=== PATIENT | male | born 1980 | race Caucasian/White ===

== ENCOUNTER → 2020-01-22 16:56 | Outpatient (CLI) | payer BC, SELFPAY ==
--- NOTE | ~2020-01-22 | XR_ITS ---
EXAMINATION: XR chest 2V 01/22/2020 17:08 INDICATION: Cough and shortness of breath PROCEDURE: 2 view chest COMPARISON: 05/27/2019 FINDINGS: The lungs are clear. The cardiomediastinal silhouette is within normal limits. There are no pleural effusions. There is no pneumothorax suspected. IMPRESSION: 1: NO ACUTE CARDIOPULMONARY DISEASE. Reviewed, dictated and finalized at location A.
== END ==
PROVIDERS: Visit Provider Internal Medicine Infectious Disease
DX: R05 Cough (principal)
CPT/HCPCS: 71046

== ENCOUNTER 2022-06-26 09:15 | Inpatient (IN) | payer BC, SELFPAY ==
[2022-06-26] VITALS (28 sets, daily range): BP systolic 162–183; BP diastolic 105–126; PULSE 60–126; RESP 15–26; TEMP 36.1–37; O2SAT 94–100
--- NOTE | ~2022-06-26 | CT_ITS ---
EXAMINATION: CT abdomen pelvis w con INDICATION: Periumbilical pain TECHNIQUE: Computed tomographic images of the abdomen and pelvis were obtained after the administrati on of 100 cc of Omnipaque 350 intravenous contrast. The dose-length product (DLP) was 768.24 mGy-cm. Automated exposure control and iterative reconstruction technique were employed. COMPARISON: 05/27/2019 FINDINGS: Minimal dependent atelectasis is present in the lung bases. The heart size is normal. There is been interval development of areas of fat attenuation in the liver adjacent to gallbladder fossa and ligamentum teres. The liver is also diffusely low in attenuation when compared with the spleen, c onsistent with hepatic steatosis. The spleen, gallbladder, and adrenal glands are normal. There is en largement of the pancreatic duct in the head of the pancreas which measures up to 6 mm. There is mild ly decreased enhancement in the head of the pancreas relative to the tail. There is acute peripancrea tic fluid surrounding the pancreas and tracking into the anterior pararenal spaces and into the pelvi s. No pathologically enlarged abdominal or pelvic lymph nodes are identified. There is no free intrap eritoneal gas or evidence of bowel obstruction. The kidneys are unremarkable. IMPRESSION: 1. Acute pancreatitis with acute peripancreatic fluid collection, likely interstitial edematous. 2. Diffuse hepatic steatosis with new areas of focal fatty infiltration near the gallbladder fossa an d ligamentum teres. Reviewed, dictated and finalized at location A. IMPRESSION: 1. Acute pancreatitis with acute peripancreatic fluid collection, likely inters titial edematous. 2. Diffuse hepatic steatosis with new areas of focal fatty infiltration near th e gallbladder fossa and ligamentum teres.
--- NOTE | 2022-06-26 09:25 | ED.ABDPAIN ---
HPI - Abdominal Pain General Chief Complaint: Abdominal Pain Stated Complaint: pancreatitis Time Seen by Provider: 06/26/22 09:19 History of Present Illness HPI narrative: 42-year-old male with a history of alcoholism presents emergency room for evaluation of upper abdominal pain. Patient states pain began last night, describes it as a sharp and stabbing pain. Is associated with occasional nausea. Patient states that he drinks approximately 1 fifth of vodka daily. States yesterday he did not drink any alcohol. Also complaining of tremors to his hands. Endorses a history of pancreatitis. Related Data Home Medications Medication Instructions Recorded Confirmed bupropion HCl 300 mg 24 hr tablet, mg PO 06/26/22 extended release buspirone 10 mg tablet mg 06/26/22 cephalexin 500 mg capsule mg 06/26/22 losartan 25 mg tablet mg 06/26/22 pantoprazole 40 mg tablet,delayed mg PO 06/26/22 release trazodone 100 mg tablet mg 06/26/22 Allergies Allergy/AdvReac Type Severity Reaction Status Date / Time No Known Allergies Allergy Unknown Verified 05/27/19 12:25 paprika Allergy Unknown Unknown Verified 06/26/22 09:33 Review of Systems Review of Systems: CONSTITUTIONAL: Denies fever, chills, or sweats. EYES: Denies visual changes, redness, or discharge. ENT: Denies rhinorrhea, congestion, sore throat, or otalgia. CARDIOVASCULAR: Denies chest pain, palpitations, or edema. RESPIRATORY: Denies cough or dyspnea. GASTROINTESTINAL: Reports abdominal pain, nausea GENITOURINARY: Denies dysuria or hematuria. SKIN: Denies rash or itching. MUSCULOSKELETAL: Denies back pain, joint pain, or myalgia. NEUROLOGIC: Reports tremors PSYCHIATRIC: Denies anxiety or depression. [facility] Past Medical History Medical History (Updated 06/26/22 @ 13:11 by Donato Rivers APRN) Acute on chronic pancreatitis Anxiety Depression Hypertension Family History Family History Father Cerebrovascular accident Social History Social History (Updated 06/26/22 @ 12:44 by Sarah Kumar NP) Social History: vapes single mom no children alc occ mj Smoking status: Heavy tobacco smoker Alcohol intake: current Exam Narrative: GENERAL: ill-appearing, well-nourished, no physical limitations, and in acute distress. HEAD: Normocephalic, atraumatic. EYES: Conjunctivae normal, PERRLA and EOMI. CHEST: Clear to auscultation. No respiratory distress. No wheezes rales or rhonchi. No tenderness. HEART: Regular rate and rhythm. No murmur heard. Normal peripheral pulses. ABDOMEN: Soft, periumbilical tenderness, nondistended, normal active bowel sounds. BACK: No CVA tenderness EXTREMITIES: Normal range of motion. No edema. No clubbing or cyanosis SKIN: Warm, dry, no rash. No noted wounds NEURO: No focal deficits. Alert and oriented x3. MAEW. CN's II-XI intact bilaterally, normal gait PSYCH: Cooperative. Normal mood and affect. Course Vital Signs Vital signs: Vital Signs Temperature 36.4 C 06/26/22 09:19 Pulse Rate 118 H 06/26/22 09:19 Respiratory Rate 21 H 06/26/22 09:19 Blood Pressure 171/119 H 06/26/22 09:19 Pulse Oximetry 98 06/26/22 09:19 Oxygen Delivery Room Air 06/26/22 09:19 Temperature 37.0 C 06/26/22 12:39 Pulse Rate 111 H 06/26/22 13:03 Respiratory Rate 21 H 06/26/22 13:03 Blood Pressure 176/116 H 06/26/22 12:36 Pulse Oximetry 99 06/26/22 13:03 Oxygen Delivery Room Air 06/26/22 09:19 MDM - Abdominal Pain Lab Data Result diagrams: 06/26/22 09:32 06/26/22 09:32 Labs: Lab Results 06/26/22 06/26/22 06/26/22 Range/Units 09:31 09:32 09:32 WBC 13.9 H (4.5-10.0) K/mm3 RBC 5.37 (4.6-6.20) M/mm3 Hgb 15.6 (14.0-18.0) g/dL Hct 47.3 (42.0-52.0) % MCV 88.1 (80-100) fl MCH 29.1 (26-34) pg MCHC 33.0 (32-36) g/dl RDW 13.2 (11.5-14.5) % Plt Count 296 (150-375) k/m
[2022-06-26] MEDS: SODIUM CHLORIDE 0.9% IV 1,000 ML 999 ML IV CONT (09:40)
[2022-06-26] MEDS: ONDANSETRON INJ 4 MG/2 ML VIAL IV PUSH ×3 (09:45→20:13)
[2022-06-26] MEDS: HYDROmorphone HCL INJ (*CRX) 1 MG/ML SYR 0.5 MG IV PUSH ×5 (09:45→20:12)
[2022-06-26] MEDS: chlordiazePOXIDE (*CRX) 10 MG CAPSULE PO (09:46)
[2022-06-26 09:48] LABS: Basophils Percent Auto 0.2 % (0.2-1.2); Eosinophils Percent Auto 0.1 % (0-4.4); Hematocrit 47.3 % (42.0-52.0); Hemoglobin 15.6 g/dL (14.0-18.0); Immature Granulocyte Absolute 0.08 K/mm3 (0.00-0.031); Immature Granulocyte Percent A 0.6 % (0-0.5); Lymphocytes Absolute Auto 0.58 K/mm3 (0.9-3.2); Lymphocytes Percent Auto 4.2 % (18.3-44.2); Mean Corpuscular Hemoglobin 29.1 pg (26-34); Mean Corpuscular Volume 88.1 fl (80-100); Mean Platelet Volume 9.7 fl (7.4-10.4); Monocytes Absolute Auto 0.9 K/mm3 (0.1-0.6); Monocytes Percent Auto 6.8 % (2.6-8.5); Neutrophils Absolute Auto 12.2 K/mm3 (1.3-6.7); Neutrophils Percent Auto 88.1 % (45.5-73.1); Platelet Count Result 296 k/mm3 (150-375); Red Blood Count 5.37 M/mm3 (4.6-6.20); Red Cell Distribution Width 13.2 % (11.5-14.5); White Blood Count 13.9 K/mm3 (4.5-10.0)
[2022-06-26 09:58] LABS: Lactic Acid Reflex 1.8 mmol/L (0.7-2.0)
[2022-06-26 09:58] LABS: Ethanol < 10 mg/dL (<10)
[2022-06-26 10:01] LABS: Alanine Aminotransferase 39 U/L (6-50); Albumin Level 4.8 g/dL (3.5-5.1); Alkaline Phosphatase 87 U/L (38-126); Anion Gap 10 mmol/L (8-16); Aspartate Amino Transferase 51 U/L (17-59); Bilirubin,Total 2.2 mg/dL (0.2-1.3); Blood Urea Nitrogen 11 mg/dL (9-20); Calcium 9.4 mg/dL (8.4-10.2); Carbon Dioxide 26 mmol/L (22-30); Chloride 97 mmol/L (98-107); Estimated CRCL calculation 129 ml/min; Estimated Glomerular Filt Rate > 60; Glucose 208 mg/dL (65-110); Potassium 4.3 mmol/L (3.4-5.0); Sodium 133 mmol/L (137-145)
[2022-06-26 10:04] LABS: Add Urine Microscopic? YES; Appearance Urine Slightly Cloudy (Clear); Bilirubin Urine 2+ (Negative); Blood Urine Trace-lysed (Negative); Color Urine Dark Yellow (Yellow); Glucose Urine UA 1+ mg/dL (Negative); Ketones Urine 2+ mg/dL (Negative); Leukocyte Esterase Ur Negative LEU/UL (Negative); Nitrate Urine Positive (Negative); Protein Urine 3+ mg/dL (Negative); Specific Grav Ur 1.025 (1.001-1.035); pH Urine 6.5 (5.0-9.0)
[2022-06-26 10:11] LABS: Mucus Urine Heavy /lpf; Squamous Epithelial Cell Urine Rare /hpf (Few); WBC Urine 0-3 /hpf
[2022-06-26 10:30] LABS: Lipase 4851 U/L (23-300)
[2022-06-26 10:47] LABS: Hemoglobin A1C 5.5 % (<5.7)
[2022-06-26] MEDS: SODIUM CHLORIDE 0.9% IV 1,000 ML 999 ML (12:04)
--- NOTE | 2022-06-26 12:39 | PM.IMHP ---
H&P: HPI History of Present Illness Date/Time: 06/26/22 12:39 Chief Complaint: Abdominal pain Narrative: This is a 42-year-old male patient who has a history of alcoholism. The patient stated that he has been sober since 2019. The patient stated that he was a recovering alcoholic and until some problems developed in his life recently. The patient recently received a promotion and his mother is paralyzed after having back surgery and he is the only child. The patient stated that he is not drink alcohol in 2 days. The patient states that he has been drinking 2/3 of a 5th of vodka daily. The patient stated that Saturday he developed severe abdominal pain and he could not even tolerate liquid at the time. The patient has had pancreatitis in the past and stated this felt the same as when he had pancreatitis a few years ago. Patient's white count is noted to be 13.9. Sodium 133. Glucose is 208. Lipase is 4851. He was also positive for UTI. He was given IV fluids, Dilaudid, Librium, Zofran and Rocephin in the emergency room. Patient is being admitted inpatient on the date of service 06/26/2022. Review of Systems Review of Systems: See HPI All systems reviewed & are unremarkable except as noted in HPI and below Constitutional: Constitutional: Reports as per HPI and Reports no additional constitutional complaints Eyes: Eyes: Reports as per HPI and Reports no additional eye complaints ENT: Reports system reviewed and no additional complaints, except as documented and Reports Normal hearing present Cardiovascular: Cardiovascular: Reports no additional cardiovascular complaints Respiratory: Respiratory: Reports no additional respiratory complaints and Reports no additional respiratory complaints Gastrointestinal: Gastrointestinal: Reports as per HPI and Reports no additional gastrointestinal complaints Musculoskeletal: Musculoskeletal: Reports no additional musculoskeletal complaints Integumentary/Breasts: Skin/Breast: Reports system reviewed and no additional complaints, except as docu and Reports as per HPI Neurologic: Reports system reviewed and no additional complaints, except as documented, Reports as per HPI and Reports Normal hearing present Psychiatric: Psychiatric: Reports no additional psychiatric complaints and Reports as per HPI Endocrine: Endocrine: Reports no additional endocrine complaints Hematologic/Lymphatic: Hematologic/Lymphatic: Reports no additional hematologic/lymphatic complaints Allergic/Immunologic: Allergic/Immunologic: Reports no additional allergic/immunologic complaints [facility] Past Medical History Medical History (Updated 06/26/22 @ 13:33 by Sarah Kumar NP) Acute on chronic pancreatitis Alcoholism Anxiety Chronic GERD Depression History of kidney stones Hypertension Surgical History Surgical History (Updated 06/26/22 @ 13:18 by Sarah Kumar NP) [place] teeth removed Family History Family History Father Cerebrovascular accident Social History Social History (Updated 06/26/22 @ 13:21 by Sarah Kumar NP) Social History: The patient stated that he stop smoking and he now occasionally vapes. The patient is single and he is the only child and his family. He has no children. The patient is a recovering alcoholic and had not drink since 2018 and just recently started drinking 2/3 of a 5th of vodka daily. His mom would be the durable power gps field data collector for healthcare. He lives with a dog. He occasionally uses marijuana. Code status full code Smoking status: Heavy tobacco smoker Alcohol intake: current Meds Home Medications and Allergies Home Medications Medication Instructions Recorded Confirmed Type bupropion HCl 300 mg 24 hr tablet, mg PO 06/26/22 History extended release buspirone 10 mg tablet mg 06/26/22 History cephalexin 500 mg capsule mg 06/26/22 History losartan 25 mg tablet mg 06/26
[2022-06-26] MEDS: SODIUM CHLORIDE 0.9% IV 1,000 ML 125 ML IV CONT ×2 (13:58→21:36)
[2022-06-26] MEDS: chlordiazePOXIDE (*CRX) 25 MG CAPSULE PO (18:32)
[2022-06-26] MEDS: traZODone HCL 50 MG TABLET 100 MG PO (20:20)
[2022-06-26] MEDS: FAMOTIDINE 20 MG/2 ML VIAL IV PUSH (21:35)
[2022-06-27] VITALS (8 sets, daily range): BP systolic 145–161; BP diastolic 98–104; PULSE 62–103; RESP 16–20; TEMP 36.4–36.8; O2SAT 95–98
[2022-06-27] MEDS: HYDROmorphone HCL INJ (*CRX) 1 MG/ML SYR 0.5 MG IV PUSH ×5 (00:08→21:17)
[2022-06-27] MEDS: ONDANSETRON INJ 4 MG/2 ML VIAL IV PUSH ×2 (00:08→05:52)
[2022-06-27] MEDS: chlordiazePOXIDE (*CRX) 25 MG CAPSULE PO ×2 (00:09→05:52)
[2022-06-27] MEDS: SODIUM CHLORIDE 0.9% IV 1,000 ML 125 ML IV CONT (05:51)
[2022-06-27 07:57] LABS: Basophils Percent Auto 0.3 % (0.2-1.2); Eosinophils Percent Auto 0.1 % (0-4.4); Hematocrit 44.5 % (42.0-52.0); Hemoglobin 14.5 g/dL (14.0-18.0); Immature Granulocyte Absolute 0.04 K/mm3 (0.00-0.031); Immature Granulocyte Percent A 0.3 % (0-0.5); Lymphocytes Absolute Auto 1.15 K/mm3 (0.9-3.2); Lymphocytes Percent Auto 9.8 % (18.3-44.2); Mean Corpuscular HGB Conc 32.6 g/dl (32-36); Mean Corpuscular Hemoglobin 29.2 pg (26-34); Mean Corpuscular Volume 89.5 fl (80-100); Monocytes Absolute Auto 1.1 K/mm3 (0.1-0.6); Monocytes Percent Auto 9.6 % (2.6-8.5); Neutrophils Absolute Auto 9.4 K/mm3 (1.3-6.7); Neutrophils Percent Auto 79.9 % (45.5-73.1); Platelet Count Result 228 k/mm3 (150-375); Red Blood Count 4.97 M/mm3 (4.6-6.20); White Blood Count 11.7 K/mm3 (4.5-10.0)
[2022-06-27 08:06] LABS: Lactic Acid Reflex 0.7 mmol/L (0.7-2.0)
[2022-06-27 08:16] LABS: Alanine Aminotransferase 25 U/L (6-50); Albumin Level 3.6 g/dL (3.5-5.1); Alkaline Phosphatase 64 U/L (38-126); Anion Gap 6 mmol/L (8-16); Aspartate Amino Transferase 25 U/L (17-59); Bilirubin,Total 1.1 mg/dL (0.2-1.3); Blood Urea Nitrogen 6 mg/dL (9-20); Calcium 8.6 mg/dL (8.4-10.2); Carbon Dioxide 30 mmol/L (22-30); Chloride 96 mmol/L (98-107); Estimated CRCL calculation 129 ml/min; Estimated Glomerular Filt Rate > 60; Glucose 117 mg/dL (65-110); Lactate Dehydrogenase 144 U/L (120-246); Lipase 1560 U/L (23-300); Phosphorus 3.2 mg/dL (2.5-4.5); Potassium 3.7 mmol/L (3.4-5.0); Sodium 132 mmol/L (137-145)
--- NOTE | 2022-06-27 08:54 | PM.IMPN ---
Progress Note: A&P Assessment and Plan (1) Acute on chronic pancreatitis: Code(s): K85.90 - Acute pancreatitis without necrosis or infection, unspecified; K86.1 - Other chronic pancreatitis Status: Acute Assessment and Plan: Epigastric pain radiating to back. Lipase [address] abd/pelvis shows acute peripancreatic fluid consistent with acute pancreatitis and diffuse hepatic steatosis with focal fatty infiltration. Continue aggressive IV resuscitation. Trend lipase, down to 1560. Continue clear liquid diet until pain more improved. Continue PRN analgesics and antiemetics. We discussed alcohol abstenance. (2) UTI (urinary tract infection): Code(s): N39.0 - Urinary tract infection, site not specified Status: Acute Assessment and Plan: C/o abdominal pain. UA +nitrates. WBC 13.9. Started on Rocephin 1 gram Q24 hours. Urine culture pending and will adjust antibiotics based on results. (3) Alcoholism: Code(s): F10.20 - Alcohol dependence, uncomplicated Status: Acute Assessment and Plan: Patient reported he started drinking again d/t significant life and work stress. He reports taking 2/3 of a 5th of Vodka. Continue CIWA protocol Scheduled librium 50 mg Q6 hours Daily thiamine and folic acid supplements. PRN Valium IV for elevated CIWA score. Care coordination consulted for substance abuse resources. Patient counseled to quit. (4) Hypertension: Code(s): I10 - Essential (primary) hypertension Status: Chronic Assessment and Plan: BP elevated on admission 183/106 to 176/116. Likely increased from acute pain with/without alcohol withdrawal. Continue losartan at home dose. Plan CODE STATUS: FULL CODE Disposition: home Time Spent With Patient Time with patient: 15 - 25 minutes Subjective Date/time seen: 06/27/22 08:54 Interval history: Patient is a 42-year-old male with a history of alcohol abuse, hypertension, GERD and anxiety.? He presented to the ED for evaluation of abdominal pain following drinking relapse. CT abd/pelvis was consistent with acute pancreatitis. He reports his pain is improving, but still present, and radiates to his back. He denies worsening pain after eating. Pain improves with IV narcotics. He has some nausea, but no emesis. He has some anxiety and mild tremors. Nursing reports CIWA score 4-5. Patient reports he is currently in counseling for anxiety and substance abuse, however, his appointment has been canceled 3 times, recently, and he has had increased work and life stress. He has tried Vivitrol in the past and did not think it worked well for him. Review of Systems Review of Systems: All systems reviewed & are unremarkable except as noted in HPI and below Exam Narrative: General: No acute distress.? Mental Status/Psych: AAOx4. Mildly anxious mood and affect. Cooperative with examination. Clear and appropriate speech. Skin: Skin fair, warm, and dry without rashes or lesions. No diaphoresis or cyanosis. HEENT: Normocephalic. EOM intact. Sclera non-icteric. Pupils equal and round. Oral mucosa moist. Neck: Supple without lymphadenopathy. Thyroid without nodules. No JVD. Heart: Normal S1 and S2 regular rate and rhythm. No murmurs, gallops, or rubs auscultated. Chest: RR unlabored at rest. Lung sounds are clear to auscultation in all lobes bilaterally without wheezes, rhonchi, or rales. Abdomen: Soft, round and tender to palpation epigastric region.? Bowel sounds present in all 4 quadrants. No guarding. CVA or suprapubic tenderness. Extremities:?? Grossly normal ROM all extremities equally. No edema. Radial pulses and dorsalis pedis pulses palpable and equal bilaterally. Neurological: No focal deficits. Muscle strength 5/5 all extremities. Cranial nerves 2-12 grossly intact. Objective Data Vital Signs Vital Signs: Vital Signs - 24 hr 06/26/22 09:19 06/26/22 09:30 06/26/22 09:
[2022-06-27] MEDS: THIAMINE HCL 200 MG/2 ML VIAL 100 MG IV PUSH (09:37)
[2022-06-27] MEDS: FAMOTIDINE 20 MG/2 ML VIAL IV PUSH ×2 (09:37→21:16)
[2022-06-27] MEDS: PANTOPRAZOLE 40 MG TABLET PO (09:41)
[2022-06-27] MEDS: LOSARTAN POTASSIUM 25 MG TABLET PO (09:42)
[2022-06-27] MEDS: buPROPion HCL XL (24 HR) 150 MG TABCR 300 MG PO (09:42)
[2022-06-27] MEDS: SODIUM CHLORIDE 0.9% IV 1,000 ML 200 ML IV CONT ×3 (12:30→23:24)
[2022-06-27] MEDS: chlordiazePOXIDE (*CRX) 25 MG CAPSULE 50 MG PO ×2 (12:42→18:10)
[2022-06-27] MEDS: traZODone HCL 50 MG TABLET 200 MG PO (21:18)
[2022-06-28] MEDS: chlordiazePOXIDE (*CRX) 25 MG CAPSULE 50 MG PO ×5 (00:11→23:52)
[2022-06-28] MEDS: traZODone HCL 50 MG TABLET 200 MG PO ×2 (00:12→23:54)
[2022-06-28 03:41] VITALS: PULSE 96
[2022-06-28] MEDS: SODIUM CHLORIDE 0.9% IV 1,000 ML 200 ML IV CONT (04:25)
[2022-06-28] MEDS: HYDROmorphone HCL INJ (*CRX) 1 MG/ML SYR 0.5 MG IV PUSH ×2 (04:29→08:37)
[2022-06-28 06:00] VITALS: BP 136/101; PULSE 98; RESP 18; TEMP 36.6; O2SAT 98
[2022-06-28 07:15] LABS: Basophils Percent Auto 0.3 % (0.2-1.2); Eosinophils Percent Auto 0.3 % (0-4.4); Hematocrit 41.8 % (42.0-52.0); Hemoglobin 13.6 g/dL (14.0-18.0); Immature Granulocyte Absolute 0.08 K/mm3 (0.00-0.031); Immature Granulocyte Percent A 0.7 % (0-0.5); Lymphocytes Absolute Auto 1.47 K/mm3 (0.9-3.2); Lymphocytes Percent Auto 12.7 % (18.3-44.2); Mean Corpuscular HGB Conc 32.5 g/dl (32-36); Mean Corpuscular Hemoglobin 29.1 pg (26-34); Mean Corpuscular Volume 89.5 fl (80-100); Mean Platelet Volume 9.8 fl (7.4-10.4); Monocytes Absolute Auto 1.2 K/mm3 (0.1-0.6); Monocytes Percent Auto 10.1 % (2.6-8.5); Neutrophils Absolute Auto 8.8 K/mm3 (1.3-6.7); Neutrophils Percent Auto 75.9 % (45.5-73.1); Platelet Count Result 197 k/mm3 (150-375); Red Blood Count 4.67 M/mm3 (4.6-6.20); Red Cell Distribution Width 12.7 % (11.5-14.5); White Blood Count 11.5 K/mm3 (4.5-10.0)
[2022-06-28 07:26] LABS: Alanine Aminotransferase 19 U/L (6-50); Albumin Level 3.3 g/dL (3.5-5.1); Alkaline Phosphatase 67 U/L (38-126); Anion Gap 7 mmol/L (8-16); Aspartate Amino Transferase 22 U/L (17-59); Blood Urea Nitrogen 5 mg/dL (9-20); Calcium 8.3 mg/dL (8.4-10.2); Carbon Dioxide 28 mmol/L (22-30); Chloride 96 mmol/L (98-107); Estimated CRCL calculation 129 ml/min; Estimated Glomerular Filt Rate > 60; Glucose 99 mg/dL (65-110); Lipase 520 U/L (23-300); Potassium 3.3 mmol/L (3.4-5.0); Sodium 131 mmol/L (137-145)
[2022-06-28] MEDS: POTASSIUM CHLORIDE 20 MEQ PACKET (FOR LIQUID) 40 MEQ PO (08:25)
[2022-06-28] MEDS: buPROPion HCL XL (24 HR) 150 MG TABCR 300 MG PO (08:25)
[2022-06-28] MEDS: POTASSIUM CHLORIDE INJ 40 MEQ in SODIUM CHLORIDE 0.9% IV 500 ML 130 MEQ IVPB (08:25)
[2022-06-28] MEDS: FAMOTIDINE 20 MG/2 ML VIAL IV PUSH ×2 (08:25→20:59)
[2022-06-28] MEDS: LOSARTAN POTASSIUM 25 MG TABLET PO ×2 (08:26→18:13)
[2022-06-28] MEDS: FOLIC ACID 1 MG TABLET PO (08:26)
[2022-06-28] MEDS: THIAMINE HCL 100 MG TABLET PO (08:26)
[2022-06-28] MEDS: PANTOPRAZOLE 40 MG TABLET PO (08:26)
--- NOTE | 2022-06-28 13:20 | PCDIET ---
Nutrition consult for alcoholism. Pt advanced to a low fat diet for lunch. Reports good appetite, stated ate 75% of meal. No reported weight loss. On thiamin. No nutrition recommendations at this time.
[2022-06-28 14:00] VITALS: BP 158/118; PULSE 95; RESP 12; TEMP 36.9; O2SAT 98
[2022-06-28] MEDS: SODIUM CHLORIDE 0.9% IV 1,000 ML 75 ML IV CONT (14:26)
[2022-06-28] MEDS: HYDROcodone/acetaminophen (*CRX) 5-325 MG TABLET 1 TAB PO ×2 (14:31→20:58)
--- NOTE | 2022-06-28 16:21 | PM.IMPN ---
Progress Note: A&P Assessment and Plan (1) Acute on chronic pancreatitis: Code(s): K85.90 - Acute pancreatitis without necrosis or infection, unspecified; K86.1 - Other chronic pancreatitis Status: Acute Assessment and Plan: Epigastric pain radiating to back. Lipase [address] abd/pelvis shows acute peripancreatic fluid consistent with acute pancreatitis and diffuse hepatic steatosis with focal fatty infiltration. Continue aggressive IV resuscitation. Trend lipase trending down 1560 to 520. pain minimal. Advance to low fat diet. Continue PRN analgesics and antiemetics. We discussed alcohol abstinence. (2) UTI (urinary tract infection): Code(s): N39.0 - Urinary tract infection, site not specified Status: Acute Assessment and Plan: C/o abdominal pain. UA +nitrates. WBC 13.9 to 11.2. Started on Rocephin 1 gram Q24 hours and received 3 doses. Unable to locate urine culture. Trial macrobid 100 mg PO BID x 4 days (total 7 days total). (3) Alcoholism: Code(s): F10.20 - Alcohol dependence, uncomplicated Status: Acute Assessment and Plan: Patient reported he started drinking again d/t significant life and work stress. He reports taking 2/3 of a 5th of Vodka. Continue CIWA protocol Scheduled librium 50 mg Q6 hours Daily thiamine and folic acid supplements. PRN Valium IV for elevated CIWA score. Care coordination consulted for substance abuse resources. Patient counseled to quit. CIWA 0 to 4. (4) Hypertension: Code(s): I10 - Essential (primary) hypertension Status: Chronic Assessment and Plan: BP elevated on admission 183/106 to 176/116. Likely increased from acute pain with/without alcohol withdrawal. BP continues to be elevated despite benzodiazepines. Increase losartan 50 mg PO daily. Continue hydralazine IV PRN Q6 hours SBP>160 or DBP>100. Plan CODE STATUS: FULL CODE Disposition: home Time Spent With Patient Time with patient: 15 - 25 minutes Subjective Date/time seen: 06/28/22 16:21 Interval history: Patient is a 42-year-old male with a history of alcohol abuse, hypertension, GERD and anxiety.? He presented to the ED for evaluation of abdominal pain following drinking relapse. CT abd/pelvis was consistent with acute pancreatitis. He denies abdominal pain, nausea or emesis. He has mild tremors to his hands but this is improving. He reports he has pain more in his lower back but thinks it's the bed. No BRENNER, hallucinations, agitation or worsening anxiety. Review of Systems Review of Systems: All systems reviewed & are unremarkable except as noted in HPI and below Exam Narrative: General: No acute distress.? Mental Status/Psych: AAOx4. Neutral mood and affect. Cooperative. Clear speech. Skin: Skin fair, warm, and dry without rashes or lesions. No diaphoresis or cyanosis. No open wounds. HEENT: Normocephalic. EOM intact. Sclera non-icteric. Pupils equal and round. Oral mucosa moist. Neck: No JVD. Heart: Normal S1 and S2 regular rate and rhythm. No murmurs, gallops, or rubs auscultated. Chest: RR unlabored at rest. Lung sounds are clear to auscultation in all lobes bilaterally without wheezes, rhonchi, or rales. Abdomen: Soft, round and minimal tenderness to palpation epigastric region.? Bowel sounds present in all 4 quadrants. No guarding. Extremities:?? Grossly normal ROM all extremities equally. No edema. Radial pulses and dorsalis pedis pulses palpable and equal bilaterally. Neurological: No focal deficits. Muscle strength 5/5 all extremities. Objective Data Vital Signs Vital Signs: Vital Signs - 24 hr 06/27/22 22:00 06/27/22 21:16 06/28/22 03:41 Temperature 98.3 F Pulse Rate 103 H Pulse Rate [Right Radial] 96 Respiratory Rate 16 Blood Pressure 161/100 H Pulse Oximetry 98 Oxygen Delivery Room Air 06/27/22 22:41 06/28/22 06:00 06/28/22 08:00 [place]
[2022-06-28 20:00] VITALS: PULSE 92
[2022-06-28] MEDS: NITROFURANTOIN MONOHYD MACROCR 100 MG CAP PO (20:58)
[2022-06-28] MEDS: hydrALAZINE HCL 20 MG/ML VIAL 10 MG IV PUSH (20:59)
[2022-06-28 21:53] VITALS: BP 180/100; PULSE 92; RESP 20; TEMP 36.2; O2SAT 98
[2022-06-29] VITALS: PULSE 92
[2022-06-29 00:55] VITALS: BP 144/99
[2022-06-29] MEDS: HYDROcodone/acetaminophen (*CRX) 5-325 MG TABLET 1 TAB PO (03:25)
[2022-06-29 04:00] VITALS: PULSE 92
[2022-06-29 05:46] VITALS: BP 126/82; PULSE 99; RESP 18; TEMP 36.1; O2SAT 96
[2022-06-29] MEDS: chlordiazePOXIDE (*CRX) 25 MG CAPSULE 50 MG PO (06:00)
[2022-06-29 06:58] LABS: Hematocrit 44.8 % (42.0-52.0); Hemoglobin 14.9 g/dL (14.0-18.0); Mean Corpuscular HGB Conc 33.3 g/dl (32-36); Mean Corpuscular Hemoglobin 29.2 pg (26-34); Mean Corpuscular Volume 87.7 fl (80-100); Mean Platelet Volume 10.1 fl (7.4-10.4); Platelet Count Result 229 k/mm3 (150-375); Red Blood Count 5.11 M/mm3 (4.6-6.20); Red Cell Distribution Width 12.7 % (11.5-14.5); White Blood Count 10.9 K/mm3 (4.5-10.0)
[2022-06-29 07:27] LABS: Alanine Aminotransferase 24 U/L (6-50); Albumin Level 3.9 g/dL (3.5-5.1); Alkaline Phosphatase 80 U/L (38-126); Anion Gap 10 mmol/L (8-16); Aspartate Amino Transferase 30 U/L (17-59); Bilirubin,Total 0.9 mg/dL (0.2-1.3); Blood Urea Nitrogen 6 mg/dL (9-20); Calcium 9.3 mg/dL (8.4-10.2); Carbon Dioxide 27 mmol/L (22-30); Chloride 98 mmol/L (98-107); Estimated CRCL calculation 129 ml/min; Estimated Glomerular Filt Rate > 60; Glucose 118 mg/dL (65-110); Potassium 3.4 mmol/L (3.4-5.0); Sodium 135 mmol/L (137-145)
[2022-06-29] MEDS: FAMOTIDINE 20 MG/2 ML VIAL IV PUSH (08:07)
[2022-06-29] MEDS: FOLIC ACID 1 MG TABLET PO (08:07)
[2022-06-29] MEDS: THIAMINE HCL 100 MG TABLET PO (08:07)
[2022-06-29] MEDS: buPROPion HCL XL (24 HR) 150 MG TABCR 300 MG PO (08:07)
[2022-06-29] MEDS: PANTOPRAZOLE 40 MG TABLET PO (08:07)
[2022-06-29] MEDS: NITROFURANTOIN MONOHYD MACROCR 100 MG CAP PO (08:07)
[2022-06-29] MEDS: LOSARTAN POTASSIUM 25 MG TABLET 50 MG PO (08:07)
--- NOTE | 2022-06-29 11:00 | PM.DS ---
DS: Admitting Diagnosis Discharge Date 06/29/22 1103 Admitting Diagnosis Acute pancreatitis Acute UTI GERD Anxiety Alcohol dependence Alcohol withdrawal DS: Discharge Diagnosis Discharge Diagnosis (1) Acute on chronic pancreatitis: Code(s): K85.90 - Acute pancreatitis without necrosis or infection, unspecified; K86.1 - Other chronic pancreatitis Status: Acute (2) UTI (urinary tract infection): Code(s): N39.0 - Urinary tract infection, site not specified Status: Acute (3) Alcoholism: Code(s): F10.20 - Alcohol dependence, uncomplicated Status: Acute (4) Hepatic steatosis: Code(s): K76.0 - Fatty (change of) liver, not elsewhere classified Status: Acute (5) Hypertension: Code(s): I10 - Essential (primary) hypertension Status: Chronic DS: Summary Hospital Course Reason for hospitalization: abdominal pain Hospital Course: Bear Boykin is a?42-year-old male patient with medical history of hypertension, alcohol abuse, anxiety, depression and prior pancreatitis. He presented to the ED for evaluation of progressively worsening epigastric pain. He reported being sober since 2019, but reported recent work and life stress. 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 The patient reported on Saturday prior to admission, he developed severe abdominal pain and he could not tolerate liquid or foods.? He had nausea, vomiting and mild tremors to his upper extremities. His last drink was 2 days prior to admission. In the ED, he was tachycardic HR 118 bpm, hypertensive 171/119, temp 36.4C, RR 20, and spO2 98% room air. Lab work demonstrated WBC 13.9.? Sodium 133.? Glucose is 208.? Lipase is 4851.? UA was positive for infection.? CT abdomen/pelvis showed acute peripancreatic fluid collection and diffuse hepatic steatosis. He was given IV fluids, Dilaudid, Librium, Zofran and IV Rocephin in the emergency room.? The patient was admitted to the medical floor for acute on chronic pancreatitis. He was placed on clear liquid, aggressive IV resuscitation, and IV narcotics for pain. He was started on scheduled PO librium 25 mg, thiamine and folate replacement. CIWA was monitored and PRN valium for withdrawal symptoms and PRN haldol for agitation were ordered. CIWA score was 0 to 4 at the time of discharge. Care coordination was counseled for abstinence resources. the patient was counseled on alcohol abstinence, as well as apparent CT evident liver changes suggestive of early liver injury. His pain imrproved and diet was advanced to low fat diet. He was noted to be hypertensive 183/109. Losartan was increased to 50 mg daily and PRN hydralazine IV were given. Vivitrol was discussed however, the patient reports he has previously used this medication without success. He plans to seek alternate substance abuse counseling. Patient was discharged home in stable condition and tolerating diet. Patient was also treated with IV Rocephin 1 gram Q24 hours for UTI. Urine unfortunately was not sent for culture. The patient did have lower back and lower abdominal symptoms. He was transitioned to macrobid PO to complete 7 day antibiotic course at discharge. Time spent discussing smoking cessation with patient: 3 to 10 minutes Status at Discharge Cognitive/behavioral status at discharge: AAOx4. Cooperative. Functional status at discharge: independent ambulation Overall status at discharge: patient is back to baseline Time Spent with Patient Time attestation: Total time spent providing and/or coordinating discharge services: Time spent: Greater than 30 minutes (>50% time spent in patient education. ) Exam Narrative: General: No acute distress.? Mental Status/Psych: AAOx4. Neutral mood and affect. Cooperative. Clear speech. Skin: Skin fair, warm, and
== END 2022-06-29 11:15 | disposition home or self-care (01) | DRG 439 ==
LOC: ANHED 10:16 → ANH3MEDSUR 12:32
PROVIDERS: Emergency Medicine; Nurse Practitioner; Admitting Provider Hospitalist; Emergency Provider Nurse Practitioner Family; PCP Internal Medicine; Visit Provider Nurse Practitioner Family
DX: K85.90 Acute pancreatitis without necrosis or infection, unspecified (principal); N39.0 Urinary tract infection, site not specified; K86.1 Other chronic pancreatitis; F10.20 Alcohol dependence, uncomplicated; K76.0 Fatty (change of) liver, not elsewhere classified; I10 Essential (primary) hypertension; K21.9 Gastro-esophageal reflux disease without esophagitis; F41.9 Anxiety disorder, unspecified; F32.A Depression, unspecified; Z72.0 Tobacco use; Z87.442 Personal history of urinary calculi
CPT/HCPCS: 36415; 74177; 80053; 80307; 81001; 83036; 83605; 83615; 83690; 83735; 84100; 84443; 85025; 85027; 96361; 96374; 96375; 99285; A9270; J0360; J0696; J1170; J2405; J3411; J3480; J7030; J7040; Q9967

== ENCOUNTER 2023-11-14 17:27 | Inpatient (IN) | payer OTHER, SELFPAY ==
[2023-11-14] VITALS (17 sets, daily range): BP systolic 127–170; BP diastolic 84–91; PULSE 93–127; RESP 14–21; TEMP 36.5; O2SAT 92–99
--- NOTE | ~2023-11-14 | CT_ITS ---
EXAMINATION: CT abdomen pelvis w con DATE: 11/14/2023 21:00 INDICATION: Pancreatitis. TECHNIQUE: Computed tomography (CT) of the abdomen and pelvis was performed with 100 mL Omnipaque 350 intravenous contrast. Automated exposure control and iterative reconstruction technique were employe d. The dose-length product was 1135.08 mGy-cm. COMPARISON: CT abdomen and pelvis 06/26/2022 FINDINGS: The visualized portions of the lung bases demonstrate mild atelectasis. There is no pleural effusion. The heart is normal. No pericardial effusion. There is diffuse hepatic steatosis. The gall bladder and spleen are normal. There is fat stranding around the pancreas. The pancreatic duct is chr onically dilated to 9 mm. The adrenal glands and left kidney are normal. There is a 3 mm cyst in righ t kidney. There are no dilated loops of bowel. The appendix is not visualized. There is diverticulosi s of the colon without evidence of diverticulitis. Aortic atherosclerosis is noted. There are no path ologically enlarged lymph nodes. There is no free intraperitoneal fluid. There is mild lumbar spondyl osis. IMPRESSION: 1. Acute interstitial pancreatitis on chronic pancreatitis. 2. Diffuse hepatic steatosis. Reviewed, dictated and finalized at location E. [employer]
--- NOTE | 2023-11-14 17:36 | ECG_ITS ---
Measurements Intervals Maribel Rate: 116 P: 12 DC: 149 QRS: 22 QRSD: 100 T: 30 QT: 345 QTc: 481 Interpretive Statements SINUS TACHYCARDIA DELAYED PRECORDIAL R/S TRANSITION BORDERLINE ST-T WAVE ABNORMALITY- ANTEROLAT/INF LEADS BASELINE ARTIFACT- I, II, III, AVR, AVL, AVF, V1-V2 ABNORMAL ECG COMPARED TO ECG 05/27/2019 13:00:28 [address]IA NOW PRESENT ST-T WAVE ABNORMALITY NOW PRESENT Electronically Signed On 11-14-2023 18:09:44 MACHINE OPERATOR ASSISTANT by David Tate D.O.
[2023-11-14 17:50] LABS: Basophils Absolute Auto 0.1 K/mm3 (0.0-0.1); Basophils Percent Auto 0.7 % (0.2-1.2); Eosinophils Absolute Auto 0.1 K/mm3 (0-0.3); Hematocrit 44.2 % (42.0-52.0); Hemoglobin 14.7 g/dL (14.0-18.0); Immature Granulocyte Absolute 0.03 K/mm3 (0.00-0.031); Immature Granulocyte Percent A 0.4 % (0-0.5); Lymphocytes Absolute Auto 2.09 K/mm3 (0.9-3.2); Mean Corpuscular HGB Conc 33.3 g/dl (32-36); Mean Corpuscular Hemoglobin 28.2 pg (26-34); Mean Corpuscular Volume 84.8 fl (80-100); Mean Platelet Volume 9.2 fl (7.4-10.4); Monocytes Absolute Auto 0.7 K/mm3 (0.1-0.6); Monocytes Percent Auto 7.9 % (2.6-8.5); Neutrophils Absolute Auto 5.5 K/mm3 (1.3-6.7); Platelet Count Result 243 k/mm3 (150-375); Red Blood Count 5.21 M/mm3 (4.6-6.20); Red Cell Distribution Width 14.4 % (11.5-14.5); White Blood Count 8.4 K/mm3 (4.5-10.0)
[2023-11-14 18:00] LABS: Ethanol 114 mg/dL (<10)
[2023-11-14 18:01] LABS: Alanine Aminotransferase 59 U/L (6-50); Alkaline Phosphatase 87 U/L (38-126); Anion Gap 24 mmol/L (8-16); Aspartate Amino Transferase 107 U/L (17-59); Bilirubin,Total 1.7 mg/dL (0.2-1.3); Blood Urea Nitrogen 8 mg/dL (9-20); Calcium 9.5 mg/dL (8.4-10.2); Carbon Dioxide 20 mmol/L (22-30); Chloride 89 mmol/L (98-107); Estimated CRCL calculation 127 ml/min; Estimated Glomerular Filt Rate > 60; Glucose 186 mg/dL (65-110); Potassium 3.1 mmol/L (3.4-5.0); Sodium 133 mmol/L (137-145)
[2023-11-14 18:27] LABS: Influenza A QL RT-PCR Negative (Negative); Influenza B QL RT-PCR Negative (Negative); RSV RNA, RT-PCR Negative (Negative); SARS-CoV-2 RNA PCR Negative (Negative)
--- NOTE | 2023-11-14 19:27 | ED.PSYCH ---
HPI - Psych General Chief Complaint: Psychiatric Symptoms Stated Complaint: Mental health Time Seen by Provider: 11/14/23 17:59 History of Present Illness HPI Narrative: 43-year-old male presenting with alcohol withdrawal and for psych eval. States that he often drinks close to a 5th a day. States he has not had a drink for 2 days. He saw his mental health professional earlier today who is concerned and sent him in for evaluation. States that he has not slept or eaten in days. States his anxiety is very poorly controlled. Denies SI or HI but states that he does not know what to do at this point. Complains of body aches all over. Related Data Home Medications Medication Instructions Recorded Confirmed bupropion HCl 300 mg 24 hr tablet, 150 mg PO DAILY 06/26/22 11/15/23 extended release (Wellbutrin XL) buspirone 10 mg tablet 10 mg PO TIDWM 06/26/22 11/15/23 trazodone 100 mg tablet 200 mg PO HS 06/26/22 11/15/23 folic acid 1 mg tablet 1 mg PO DAILY 11/15/23 11/15/23 hydrocodone 5 mg-acetaminophen 325 1 tablet PO Q4-6H 11/15/23 11/15/23 mg tablet losartan 25 mg tablet 25 mg PO DAILY 11/15/23 11/15/23 multivitamin with minerals 1 tablet PO DAILY 11/15/23 11/15/23 quetiapine 50 mg tablet 100 mg PO HS 11/15/23 11/15/23 sertraline 100 mg tablet 100 mg PO DAILY 11/15/23 11/15/23 thiamine mononitrate (vit B1) 100 100 mg PO DAILY 11/15/23 11/15/23 mg tablet (Vitamin B-1 (mononitrate)) Allergies Allergy/AdvReac Type Severity Reaction Status Date / Time paprika Allergy Severe Anaphylaxis Verified 11/15/23 04:37 kiwi AdvReac Redness of Verified 11/15/23 04:37 Skin Review of Systems Review of Systems: All systems reviewed & are unremarkable except as noted in HPI and below PMFSH Past Medical History Medical History Acute on chronic pancreatitis Alcoholism Anxiety Chronic GERD Depression History of kidney stones Hypertension Surgical History Surgical History [place] teeth removed Family History Family History Father Cerebrovascular accident Social History Social History Social History: The patient stated that he stop smoking and he now occasionally vapes. The patient is single and he is the only child and his family. He has no children. The patient is a recovering alcoholic and had not drink since 2019 and just recently started drinking 2/3 of a 5th of vodka daily. His mom would be the durable power trial attorney for healthcare. He lives with a dog. He occasionally uses marijuana. Code status full code Smoking packs per day: 0.75 Smoking cigarettes per day: 15.0 Years smoked: 10 Smoking pack-years: 7.50 Smoking status: Former smoker Tobacco type: cigarettes Second hand tobacco smoke exposure: Yes (second hand from father) Alcohol intake: current Drinks per week: 20 Substance use type: marijuana Other substance usage details: occasional marijuana use Last use: 10/01/23 Do You Feel Safe in your Home?: Yes Lack of Transportation: No Lack of Food: Never True Current Housing: I Have Housing Concerned About Future Housing: YES Difficulty Paying Gas/Electric Bills: No Difficulty Paying for Meds: YES Currently Unemployed: YES Education: Bachelor's Degree Difficulty w/ Childcare or Family Care: No Spiritual care concerns: No Exam Narrative: GENERAL: Tearful, anxious, pleasant and cooperative HEAD: Normocephalic, atraumatic. EYES: PERRLA and EOMI. ENT: + tongue fasciculations NECK: Supple. CHEST: Clear to auscultation. No respiratory distress. HEART: Tachycardic, regular rhythm ABDOMEN: Soft, nontender, nondistended EXTREMITIES: Normal range of motion. + tremulous SKIN: Warm, dry, no rash. NEURO: No focal deficits.
[2023-11-14 19:32] LABS: Magnesium 2.1 mg/dL (1.6-2.3)
[2023-11-14] MEDS: SODIUM CHLORIDE 0.9% IV 1,000 ML 999 ML IV CONT (19:45)
[2023-11-14] MEDS: LORazepam INJ (*CRX) 2 MG/ML VIAL IV PUSH (19:45)
[2023-11-14] MEDS: chlordiazePOXIDE (*CRX) 25 MG CAPSULE 50 MG PO (19:46)
[2023-11-14] MEDS: ONDANSETRON INJ 4 MG/2 ML VIAL IV PUSH (19:46)
[2023-11-14 19:49] LABS: Lipase 12098 U/L (23-300)
[2023-11-14] MEDS: FOLIC ACID 1 MG/0.2 ML INJ IV PUSH (20:36)
[2023-11-14] MEDS: THIAMINE 500 MG/NS 100 ML 500 MG/100 ML BAG 200 MG IVPB (20:37)
--- NOTE | 2023-11-14 20:40 | PM.IMHP ---
H&P: HPI History of Present Illness Date/Time: 11/14/23 20:40 Chief Complaint: Anxiety Narrative: This is a 43-year-old male with past medical history significant for alcohol dependence, GERD, hepatic steatosis, former smoker. Patient presents to the emergency room after he presented to his psychiatric office with complaints of anxiety. In emergency room patient was very anxious, complaining of abdominal pain rating it at 7 to 8/10 in intensity in the epigastric area with radiation to the back, relieved only by pain medication, feeling very anxious has not been able to sleep in the last 3 days has been having nausea but no vomiting no diarrhea has had poor appetite and poor per orally intake as well, denies any fevers, rigors, chills, cough, sputum production. Preliminary workup was significant for lap paced level of 12,000, chloride 80, sodium 133, potassium 3.1, a CT of abdomen and pelvis was significant for interstitial pancreatitis. Patient has been admitted for further evaluation management and treatment. EXAMINATION: CT abdomen pelvis w con DATE: 11/14/2023 21:00 INDICATION: Pancreatitis. TECHNIQUE: Computed tomography (CT) of the abdomen and pelvis was performed with 100 mL Omnipaque 350 intravenous contrast. Automated exposure control and iterative reconstruction technique were employed. The dose-length product was 1135.08 mGy-cm. COMPARISON: CT abdomen and pelvis 06/26/2022 FINDINGS: The visualized portions of the lung bases demonstrate mild atelectasis. There is no pleural effusion. The heart is normal. No pericardial effusion. There is diffuse hepatic steatosis. The gallbladder and spleen are normal. There is fat stranding around the pancreas. The pancreatic duct is chronically dilated to 9 mm. The adrenal glands and left kidney are normal. There is a 3 mm cyst in right kidney. There are no dilated loops of bowel. The appendix is not visualized. There is diverticulosis of the colon without evidence of diverticulitis. Aortic atherosclerosis is noted. There are no pathologically enlarged lymph nodes. There is no free intraperitoneal fluid. There is mild lumbar spondylosis. IMPRESSION: 1. Acute interstitial pancreatitis on chronic pancreatitis. 2. Diffuse hepatic steatosis. Review of Systems Review of Systems: Abdominal pain, nausea, poor per orally intake, poor appetite, anxiety Constitutional: Constitutional: Denies chills, Denies fever(s), Denies night sweats and Reports poor appetite Eyes: Eyes: Denies change in vision ENT: Denies dysphagia and Denies odynophagia Cardiovascular: Cardiovascular: Denies chest pain at rest, Denies radiating jaw, neck or arm pain and Denies palpitations Respiratory: Respiratory: Denies cough, Denies excessive phlegm production and Denies dyspnea on exertion Gastrointestinal: Gastrointestinal: Reports abdominal pain, Denies dyspepsia, Denies heartburn, Denies diarrhea, Denies loose stools, Reports nausea and Denies vomiting Genitourinary: Genitourinary: Denies dysuria Musculoskeletal: Musculoskeletal: Denies back pain, Denies myalgias, Denies arthralgias and Denies joint swelling Integumentary/Breasts: Skin/Breast: Denies rash Neurologic: Denies focal weakness, Denies Sensory deficit (Neuro) and Denies weakness Psychiatric: Psychiatric: Reports anxiety and Denies tactile hallucinations Endocrine: Endocrine: Denies cold intolerance, Denies deepening of the voice, Denies heat intolerance, Denies increase in ring/shoe/hat size, Denies polyuria and Denies palpitations Hematologic/Lymphatic: Hematologic/Lymphatic: Reports no additional hematologic/lymphatic complaints and Reports as per HPI Allergic/Immunologic: Allergic/Immunologic: Reports no additional allergic/immunologic complaints and Reports as per HPI [facility] Past Medical History Medical History Acute on chronic pancreatitis Alcoholism Anxiety Chronic GERD Dep
[2023-11-15] VITALS (13 sets, daily range): BP systolic 129–143; BP diastolic 86–95; PULSE 69–104; RESP 13–20; TEMP 36.3–37.1; O2SAT 92–98; BMI 30.4
[2023-11-15] MEDS: ONDANSETRON INJ 4 MG/2 ML VIAL IV PUSH ×2 (00:57→17:14)
[2023-11-15] MEDS: HYDROmorphone HCL INJ (*CRX) 1 MG/ML SYR 0.5 MG IV PUSH ×2 (00:57→05:24)
[2023-11-15 01:42] LABS: Glucose Point of Care 137 mg/dl (65-105)
--- NOTE | 2023-11-15 01:43 | PC.NURSE ---
glucose 137
[2023-11-15] MEDS: KETOROLAC 30 MG/ML VIAL (*BKC) IV PUSH ×2 (02:21→08:29)
[2023-11-15] MEDS: LORazepam INJ (*CRX) 2 MG/ML VIAL IV PUSH ×3 (02:22→17:12)
--- NOTE | 2023-11-15 02:33 | PC.NURSE ---
This patient, Bear Boykin, was admitted to 3 [facility] Surg Room 323-02. Patient/family oriented to hospital policies and general routines including ID bracelet, bed and alarms, visiting hours, pain management, procedures, bathroom and other care routines, personal items, smoking policy, room service/diet, and visiting hours. Information on how to activate the Rapid Response Team has been discussed. Patient/Family are encouraged to report perceived risks to care and to ask questions if they do not understand what they are told or what they should do.
[2023-11-15] MEDS: chlordiazePOXIDE (*CRX) 25 MG CAPSULE 50 MG PO ×3 (05:20→17:06)
[2023-11-15 05:24] LABS: Appearance Urine Clear (Clear); Bacteria Urine None Seen /hpf; Bilirubin Urine Negative (Negative); Blood Urine Negative (Negative); Color Urine Dark Yellow (Yellow); Glucose Urine UA 2+ mg/dL (Negative); Ketones Urine 3+ mg/dL (Negative); Leukocyte Esterase Ur Negative LEU/UL (Negative); Nitrate Urine Negative (Negative); Non Pathogenic Casts 0-2; Protein Urine 1+ mg/dL (Negative); RBC Urine 0-2 /hpf (0-2); Squamous Epithelial Cell Urine None seen /hpf (Few); WBC Urine 0-5 /hpf
[2023-11-15 05:30] LABS: Add Urine Microscopic? YES; Specific Grav Ur 1.054 (1.001-1.035)
[2023-11-15 05:37] LABS: Amphetamine Screen Urine Negative (Negative); Barbiturate Screen Urine Negative (Negative); Benzodiazepines Screen Urine Negative (Negative); Cannabinoid Screen Urine Positive (Negative); Cocaine Screen Urine Negative (Negative); Methadone Screen Urine Negative (Negative); Opiate Screen Urine Negative (Negative); Phencyclidine Screen Urine Negative (Negative)
[2023-11-15 06:12] LABS: Glucose Point of Care 116 mg/dl (65-105)
[2023-11-15 07:52] LABS: Glucose Point of Care 116 mg/dl (65-105)
[2023-11-15] MEDS: SERTRALINE HCL 50 MG TABLET 100 MG PO (08:21)
[2023-11-15] MEDS: FOLIC ACID 1 MG TABLET PO (08:21)
[2023-11-15] MEDS: THERAPEUTIC MULTIVITAMINS/MINERALS TAB (*BKC) 1 TABLET PO (08:21)
[2023-11-15] MEDS: buPROPion HCL XL (24 HR) 150 MG TABCR PO (08:21)
[2023-11-15] MEDS: busPIRone HCL 10 MG TABLET PO ×3 (08:22→17:06)
[2023-11-15] MEDS: LOSARTAN POTASSIUM 25 MG TABLET PO (08:22)
[2023-11-15] MEDS: THIAMINE HCL 200 MG/2 ML VIAL 100 MG IV PUSH (10:01)
[2023-11-15 11:44] LABS: Glucose Point of Care 106 mg/dl (65-105)
--- NOTE | 2023-11-15 12:10 | PM.IMPN ---
Progress Note: A&P Assessment and Plan (1) Acute on chronic pancreatitis: Code(s): K85.90 - Acute pancreatitis without necrosis or infection, unspecified; K86.1 - Other chronic pancreatitis Status: Acute Assessment and Plan: NPO except ice chips and meds IV fluids, consider clear liquid diet this evening (2) Alcoholism: Code(s): F10.20 - Alcohol dependence, uncomplicated Status: Acute Assessment and Plan: CIWA as needed (3) Hepatic steatosis: Code(s): K76.0 - Fatty (change of) liver, not elsewhere classified Status: Acute Assessment and Plan: Follow-up in outpatient setting (4) Chronic GERD: Code(s): K21.9 - Gastro-esophageal reflux disease without esophagitis Status: Acute Assessment and Plan: PPI (5) Anxiety: Code(s): F41.9 - Anxiety disorder, unspecified Status: Acute Assessment and Plan: Anxiety was out of control for several days prior to admission. Since admission his anxiety has been improved, he is receiving p.r.n. Ativan for CIWA (6) Depression: Code(s): F32.A - Depression, unspecified Status: Acute Assessment and Plan: No HI or SI at this time. No hallucinations. Continue home medications Plan CIWA IV fluids Advanced diet as tolerated Check CK level Daily labs Continue home medications Time Spent With Patient Time with patient: 25 - 35 minutes Subjective Date/time seen: 11/15/23 12:10 Interval history: This is a 43-year-old male patient admitted to the hospital for alcoholic pancreatitis and severe anxiety. Lipase level or 12,000. He received IV fluids in the emergency department but IV fluids were not continued upon admission so I have re-initiated them and ordered repeat labs this afternoon. Patient is currently NPO with sips and ice chips. He reports abdominal pain has resolved. Nausea is resolved at this time. He is complaining of tremors related to alcohol cessation. Last drink was 3 days ago. Patient mildly clammy. No abdominal tenderness at this time. If lipase is improving we will consider clear liquids for dinner. Patient is agreeable with this plan. He reports that prior to hospitalization he had slept in several days. Since hospitalization he has slept several times. Review of Systems Review of Systems: All systems reviewed & are unremarkable except as noted in HPI and below Exam Narrative: GENERAL: Mildly ill-appearing, well-nourished, and in no acute distress. HEAD: Normocephalic, atraumatic. ENT:? Mucous membranes moist. CHEST: Clear to auscultation.? No respiratory distress. HEART: Borderline tachycardic rate and regular rhythm. ? Normal peripheral pulses. ABDOMEN: Soft, nontender, nondistended. EXTREMITIES: Normal range of motion. No peripheral edema. SKIN: Warm clammy normal color NEURO: Alert and oriented x3. Fine tremors to outstretched extremities. Moves all extremities well, no focal neuro deficits PSYCH: Normal mood and affect Objective Data Vital Signs Vital Signs: Vital Signs - 24 hr 11/14/23 17:31 11/14/23 19:17 11/14/23 19:35 Temperature 36.5 C Pulse Rate 127 H 99 Respiratory Rate 21 H 16 Blood Pressure 170/84 H 142/91 H Pulse Oximetry 99 95 98 Oxygen Delivery Room Air 11/14/23 20:37 11/14/23 20:46 11/14/23 20:47 Temperature Pulse Rate 96 101 H 100 Respiratory Rate 14 14 15 Blood Pressure 127/89 Pulse Oximetry 95 96 94 Oxygen Delivery 11/14/23 21:05 11/14/23 21:15 11/14/23 21:46 Temperature Pulse Rate 94 97 93 Respiratory Rate 14 17 17 Blood Pressure Pulse Oximetry 97 96 92 Oxygen Delivery 11/14/23 22:07 11/14/23 22:20 11/14/23 22:30 Temperature Pulse Rate 97 Respiratory Rate 16 17 17 Blood Pressure Pulse Oximetry 96 96 95 Oxygen Delivery 11/14/23 22:48 11/14/23 23:10 11/14/23 23:15 Temperature Pulse Rate 103 H 106 H Respiratory Rate 20 17 Blood Pr
[2023-11-15] MEDS: LACTATED RINGERS 1,000 ML 200 ML IV CONT ×3 (12:40→17:12)
[2023-11-15 15:21] LABS: Alanine Aminotransferase 47 U/L (6-50); Albumin Level 3.9 g/dL (3.5-5.1); Alkaline Phosphatase 64 U/L (38-126); Anion Gap 12 mmol/L (8-16); Aspartate Amino Transferase 75 U/L (17-59); Bilirubin,Total 2.1 mg/dL (0.2-1.3); Blood Urea Nitrogen 9 mg/dL (9-20); Carbon Dioxide 28 mmol/L (22-30); Chloride 93 mmol/L (98-107); Creatine Kinase 42 U/L (55-170); Estimated CRCL calculation 165 ml/min; Estimated Glomerular Filt Rate > 60; Glucose 101 mg/dL (65-110); Lipase 763 U/L (23-300); Potassium 3.1 mmol/L (3.4-5.0); Sodium 133 mmol/L (137-145)
[2023-11-15] MEDS: HYDROcodone/acetaminophen (*CRX) 5-325 MG TABLET 1 TAB PO (19:41)
[2023-11-15] MEDS: traZODone HCL 50 MG TABLET 200 MG PO (19:45)
[2023-11-15] MEDS: QUEtiapine FUMARATE 100 MG TABLET PO (19:46)
[2023-11-16] MEDS: chlordiazePOXIDE (*CRX) 25 MG CAPSULE 50 MG PO ×3 (00:35→12:54)
[2023-11-16] MEDS: KETOROLAC 30 MG/ML VIAL (*BKC) IV PUSH ×3 (00:35→20:23)
[2023-11-16 02:55] LABS: Glucose Point of Care 162 mg/dl (65-105)
[2023-11-16 06:00] VITALS: BP 144/94; PULSE 107; RESP 18; TEMP 36.4; O2SAT 94
[2023-11-16 06:09] LABS: Glucose Point of Care 123 mg/dl (65-105)
[2023-11-16 07:01] LABS: Alanine Aminotransferase 41 U/L (6-50); Albumin Level 3.6 g/dL (3.5-5.1); Alkaline Phosphatase 51 U/L (38-126); Anion Gap 8 mmol/L (8-16); Aspartate Amino Transferase 64 U/L (17-59); Bilirubin,Total 1.4 mg/dL (0.2-1.3); Blood Urea Nitrogen 9 mg/dL (9-20); Calcium 8.7 mg/dL (8.4-10.2); Carbon Dioxide 31 mmol/L (22-30); Chloride 93 mmol/L (98-107); Estimated CRCL calculation 165 ml/min; Estimated Glomerular Filt Rate > 60; Glucose 118 mg/dL (65-110); Lipase 616 U/L (23-300); Magnesium 1.9 mg/dL (1.6-2.3); Potassium 2.9 mmol/L (3.4-5.0); Sodium 132 mmol/L (137-145)
[2023-11-16] MEDS: SERTRALINE HCL 50 MG TABLET 100 MG PO (08:29)
[2023-11-16] MEDS: THIAMINE HCL 200 MG/2 ML VIAL 100 MG IV PUSH (08:30)
[2023-11-16] MEDS: buPROPion HCL XL (24 HR) 150 MG TABCR PO (08:30)
[2023-11-16] MEDS: FOLIC ACID 1 MG TABLET PO (08:30)
[2023-11-16] MEDS: LOSARTAN POTASSIUM 25 MG TABLET PO (08:30)
[2023-11-16] MEDS: busPIRone HCL 10 MG TABLET PO ×3 (08:30→17:38)
[2023-11-16] MEDS: THERAPEUTIC MULTIVITAMINS/MINERALS TAB (*BKC) 1 TABLET PO (08:30)
[2023-11-16] MEDS: POTASSIUM CHLORIDE 20 MEQ ER TABLET 60 MEQ PO (08:31)
[2023-11-16 10:00] VITALS: BP 109/72; PULSE 123; RESP 18; TEMP 36.2; O2SAT 95
--- NOTE | 2023-11-16 12:48 | PM.IMPN ---
Progress Note: A&P Assessment and Plan (1) Acute on chronic pancreatitis: Code(s): K85.90 - Acute pancreatitis without necrosis or infection, unspecified; K86.1 - Other chronic pancreatitis Status: Acute Assessment and Plan: Tolerating low fat diet (2) Alcoholism: Code(s): F10.20 - Alcohol dependence, uncomplicated Status: Acute Assessment and Plan: CIWA as needed, decrease scheduled Librium to decrease sedation (3) Hepatic steatosis: Code(s): K76.0 - Fatty (change of) liver, not elsewhere classified Status: Acute Assessment and Plan: Follow-up in outpatient setting (4) Chronic GERD: Code(s): K21.9 - Gastro-esophageal reflux disease without esophagitis Status: Acute Assessment and Plan: PPI (5) Anxiety: Code(s): F41.9 - Anxiety disorder, unspecified Status: Acute Assessment and Plan: Anxiety was out of control for several days prior to admission. Since admission his anxiety has been improved, he is receiving scheduled Librium and p.r.n. Ativan for CIWA (6) Depression: Code(s): F32.A - Depression, unspecified Status: Acute Assessment and Plan: No HI or SI at this time. No hallucinations. Continue home medications. Mother reports his medications for mental health have been refilled by psychiatric provider. Plan CIWA IV fluids Advanced diet as tolerated Check CK level Daily labs Continue home medications Time Spent With Patient Time with patient: 25 - 35 minutes Subjective Date/time seen: 11/16/23 12:48 Interval history: 11/15: This is a 43-year-old male patient admitted to the hospital for alcoholic pancreatitis and severe anxiety. Lipase level or 12,000. He received IV fluids in the emergency department but IV fluids were not continued upon admission so I have re-initiated them and ordered repeat labs this afternoon. Patient is currently NPO with sips and ice chips. He reports abdominal pain has resolved. Nausea is resolved at this time. He is complaining of tremors related to alcohol cessation. Last drink was 3 days ago. Patient mildly clammy. No abdominal tenderness at this time. If lipase is improving we will consider clear liquids for dinner. Patient is agreeable with this plan. He reports that prior to hospitalization he had slept in several days. Since hospitalization he has slept several times. 11/16: Patient reports that his abdominal pain is essentially resolved, only 10% of original pain quality per patient. Lipase 600s. Slight tremors remain. Patient reports feeling anxious and depressed but no thoughts of self harm. Patient's mother at bedside. Will plan to discharge tomorrow. Review of Systems Review of Systems: All systems reviewed & are unremarkable except as noted in HPI and below Exam Narrative: GENERAL: Mildly ill-appearing, well-nourished, and in no acute distress. HEAD: Normocephalic, atraumatic. ENT:? Mucous membranes moist. CHEST: Clear to auscultation.? No respiratory distress. HEART: Borderline tachycardic rate and regular rhythm. ? Normal peripheral pulses. ABDOMEN: Soft, nontender, nondistended. EXTREMITIES: Normal range of motion. No peripheral edema. SKIN: Warm clammy normal color NEURO: Alert and oriented x3. Fine tremors to outstretched extremities. Moves all extremities well, no focal neuro deficits PSYCH: Normal mood and affect Objective Data Vital Signs Vital Signs: Vital Signs - 24 hr 11/15/23 14:00 11/15/23 16:00 11/15/23 20:00 Temperature 36.6 C Pulse Rate 69 Respiratory Rate 20 Blood Pressure 131/91 H 131/91 H Pulse Oximetry 97 Oxygen Delivery Room Air 11/15/23 22:00 11/16/23 06:00 11/16/23 10:00 Temperature 37.1 C 36.4 C L 36.2 C L Pulse Rate 103 H 107 H 123 H Respiratory Rate 20 18 18 Blood Pressure 143/92 H 144/94 H 109/72 Pulse Oximetry 94 94 95 Oxygen Delivery 11/16/23 08:25 Temperature P
[2023-11-16] MEDS: LACTATED RINGERS 1,000 ML 200 ML IV CONT ×2 (13:00→18:07)
[2023-11-16 14:00] VITALS: BP 145/98; PULSE 100; RESP 18; TEMP 36.2; O2SAT 95
[2023-11-16] MEDS: chlordiazePOXIDE (*CRX) 25 MG CAPSULE PO (17:38)
[2023-11-16] MEDS: ONDANSETRON INJ 4 MG/2 ML VIAL IV PUSH (18:07)
[2023-11-16] MEDS: QUEtiapine FUMARATE 100 MG TABLET PO (20:20)
[2023-11-16] MEDS: traZODone HCL 50 MG TABLET 200 MG PO (20:20)
[2023-11-16 21:54] VITALS: BP 148/98; PULSE 107; RESP 16; TEMP 36.6; O2SAT 97
[2023-11-17] MEDS: chlordiazePOXIDE (*CRX) 25 MG CAPSULE PO ×2 (03:23→06:15)
[2023-11-17] MEDS: LACTATED RINGERS 1,000 ML 200 ML IV CONT (03:24)
[2023-11-17 06:00] VITALS: BP 135/97; PULSE 89; RESP 16; TEMP 36.2; O2SAT 95
[2023-11-17 06:57] LABS: Alanine Aminotransferase 61 U/L (6-50); Albumin Level 3.1 g/dL (3.5-5.1); Alkaline Phosphatase 57 U/L (38-126); Anion Gap 4 mmol/L (8-16); Aspartate Amino Transferase 97 U/L (17-59); Blood Urea Nitrogen 4 mg/dL (9-20); Calcium 8.9 mg/dL (8.4-10.2); Carbon Dioxide 30 mmol/L (22-30); Chloride 102 mmol/L (98-107); Estimated CRCL calculation 165 ml/min; Estimated Glomerular Filt Rate > 60; Glucose 139 mg/dL (65-110); Lipase 430 U/L (23-300); Magnesium 1.9 mg/dL (1.6-2.3); Potassium 3.1 mmol/L (3.4-5.0); Sodium 136 mmol/L (137-145)
[2023-11-17] MEDS: buPROPion HCL XL (24 HR) 150 MG TABCR PO (08:19)
[2023-11-17] MEDS: THERAPEUTIC MULTIVITAMINS/MINERALS TAB (*BKC) 1 TABLET PO (08:19)
[2023-11-17] MEDS: POTASSIUM CHLORIDE 20 MEQ ER TABLET 60 MEQ PO (08:19)
[2023-11-17] MEDS: busPIRone HCL 10 MG TABLET PO (08:20)
[2023-11-17] MEDS: THIAMINE HCL 200 MG/2 ML VIAL 100 MG IV PUSH (08:20)
[2023-11-17] MEDS: LOSARTAN POTASSIUM 25 MG TABLET PO (08:20)
[2023-11-17] MEDS: KETOROLAC 30 MG/ML VIAL (*BKC) IV PUSH (08:20)
[2023-11-17] MEDS: SERTRALINE HCL 50 MG TABLET 100 MG PO (08:20)
[2023-11-17] MEDS: FOLIC ACID 1 MG TABLET PO (08:20)
--- NOTE | 2023-11-17 10:04 | PM.DS ---
DS: Admitting Diagnosis Discharge Date 11/17/2023 Admitting Diagnosis Acute on chronic pancreatitis, alcoholism, hepatic steatosis, chronic GERD DS: Discharge Diagnosis Discharge Diagnosis (1) Acute on chronic pancreatitis: Code(s): K85.90 - Acute pancreatitis without necrosis or infection, unspecified; K86.1 - Other chronic pancreatitis Status: Acute (2) Alcoholism: Code(s): F10.20 - Alcohol dependence, uncomplicated Status: Acute (3) Hepatic steatosis: Code(s): K76.0 - Fatty (change of) liver, not elsewhere classified Status: Acute (4) Chronic GERD: Code(s): K21.9 - Gastro-esophageal reflux disease without esophagitis Status: Acute (5) Anxiety: Code(s): F41.9 - Anxiety disorder, unspecified Status: Acute (6) Depression: Code(s): F32.A - Depression, unspecified Status: Acute DS: Summary Hospital Course Hospital Course: 11/14 H&P: This is a 43-year-old male with past medical history significant for alcohol dependence, GERD, hepatic steatosis, former smoker.? Patient presents to the emergency room after he presented to his psychiatric office with complaints of anxiety.? In emergency room patient was very anxious, complaining of abdominal pain rating it at 7 to 8/10 in intensity in the epigastric area with radiation to the back, relieved only by pain medication, feeling very anxious has not been able to sleep in the last 3 days has been having nausea but no vomiting no diarrhea has had poor appetite and poor per orally intake as well, denies any fevers, rigors, chills, cough, sputum production.? Preliminary workup was significant for lap paced level of 12,000, chloride 80, sodium 133, potassium 3.1, a CT of abdomen and pelvis was significant for interstitial pancreatitis.? Patient has been admitted for further evaluation management and treatment. 11/15:? This is a 43-year-old male patient admitted to the hospital for alcoholic pancreatitis and severe anxiety.? Lipase level or 12,000. He received IV fluids in the emergency department but IV fluids were not continued upon admission so I have re-initiated them and ordered repeat labs this afternoon.? Patient is currently NPO with sips and ice chips.? He reports abdominal pain has resolved.? Nausea is resolved at this time.? He is complaining of tremors related to alcohol cessation.? Last drink was 3 days ago.? Patient mildly clammy.? No abdominal tenderness at this time.? If lipase is improving we will consider clear liquids for dinner.? Patient is agreeable with this plan.? He reports that prior to hospitalization he had slept in several days.? Since hospitalization he has slept several times. 11/16:? Patient reports that his abdominal pain is essentially resolved, only 10% of original pain quality per patient. Lipase 600s.? Slight tremors remain.? Patient reports feeling anxious and depressed but no thoughts of self harm.? Patient's mother at bedside.? Will plan to discharge tomorrow. 11/17: Patient was feeling much better, looked good and appeared to be in better mood. He is tolerating low-fat diet including eating breakfast this morning. Discharge with prescription for up to 5 days of Librium (20 tablets) and Zofran. Encouraged patient to abstain from alcohol. Encouraged him to follow-up with substance abuse counselor [facility]. Status at Discharge Cognitive/behavioral status at discharge: Awake alert oriented and pleasant Functional status at discharge: independent ambulation Overall status at discharge: patient is back to baseline Time Spent with Patient Time attestation: Total time spent providing and/or coordinating discharge services: 40 minutes Time spent: Greater than 30 minutes Exam Narrative: GENERAL: Well-appearing, well-nourished, and in no acute distress. HEAD: Normocephalic, atraumatic. ENT:? Mucous membranes moist. CHEST: Clear to auscultation.? No respiratory distress. HEART: Borderline ta
== END 2023-11-17 10:35 | disposition home or self-care (01) | DRG 439 ==
LOC: ANHED 19:58 → ANH3MEDSUR 23:52
PROVIDERS: Admitting Provider Internal Medicine; Emergency Provider Emergency Medicine; PCP Internal Medicine; Visit Provider Nurse Practitioner
DX: K85.20 Alcohol induced acute pancreatitis without necrosis or infection (principal); F10.239 Alcohol dependence with withdrawal, unspecified; K86.0 Alcohol-induced chronic pancreatitis; F10.20 Alcohol dependence, uncomplicated; K76.0 Fatty (change of) liver, not elsewhere classified; K21.9 Gastro-esophageal reflux disease without esophagitis; F41.9 Anxiety disorder, unspecified; E87.6 Hypokalemia; F32.A Depression, unspecified; Z87.891 Personal history of nicotine dependence; Z20.822 Contact with and (suspected) exposure to COVID-19
CPT/HCPCS: 36415; 74177; 80053; 80307; 81001; 82550; 82948; 83690; 83735; 84443; 85025; 87637; 93005; 96365; 96374; 96375; 99285; A9270; G0378; J1170; J1885; J2060; J2405; J3411; J7030; J7120; Q9967